=== PATIENT | female | born 1980 | race Caucasian/White ===

== ENCOUNTER 2017-08-14 12:36 | Emergency (ER) | payer MEDICAID ==
[~2017-08-14] VITALS: Ht 170.2 cm; Wt 71.0 kg
[2017-08-14] MEDS ORDERED: thiamine 100mg/ml 2ml inj. IV ONE (12:50)
[2017-08-14] MEDS ORDERED: ondansetron/PF 4mg/2ml inj IV ONE (12:50)
[2017-08-14] MEDS ORDERED: normal saline 1000ML IV soln IVB ONE (12:50)
[2017-08-14] MEDS ORDERED: folic acid 1mg/0.2ml inj IV ONE (12:50)
[2017-08-14] MEDS ORDERED: proCHLORperazine 10 MG/2 ml inj IV ONE (12:55)
[2017-08-14 13:15] LABS: BASOPHILS % (AUTO) 0.3 % (0-1); EOSINOPHILS # (AUTO) 0.1 X10'3 (0-0.9); EOSINOPHILS % (AUTO) 1.1 % (0-6); HEMATOCRIT 39.2 % (35.0-45.0); HEMOGLOBIN 13.7 g/dl (12.0-16.0); LYMPHOCYTES # (AUTO) 2.2 X10'3 (1.1-4.8); LYMPHOCYTES % (AUTO) 31.4 % (21-51); MEAN CORPUSCULAR HEMOGLOBIN 32.8 PG (27.0-31.0); MEAN CORPUSCULAR HGB CONC 34.9 % (33.0-36.5); MEAN PLATELET VOLUME 8.9 FL (7.4-10.4); MONOCYTES # (AUTO) 0.4 X10'3 (0-0.9); MONOCYTES % (AUTO) 5.6 % (2-12); NEUTROPHILS # (AUTO) 4.3 X10'3 (1.8-7.7); NEUTROPHILS % (AUTO) 61.6 % (42-75); PLATELET COUNT 245 X10'3 (140-440); RED BLOOD COUNT 4.16 X10'6 (4.20-5.60); RED CELL DISTRIBUTION WIDTH 14.1 % (11.5-14.5); WHITE BLOOD COUNT 6.9 X10'3 (4.5-11.0)
[2017-08-14 13:27] LABS: URINE HCG NEGATIVE (NEG)
[2017-08-14 13:30] LABS: CLARITY,URINE CLEAR (Clear); COLOR,URINE STRAW (Yellow); GLUCOSE, URINE NEGATIVE (Neg); KETONES,URINE NEGATIVE (Neg); LEUKOCYTE ESTERASE ,URINE NEGATIVE (Neg); NITRITES, URINE NEGATIVE (Neg); OCCULT BLOOD,URINE NEGATIVE (Neg); PROTEIN,URINE NEGATIVE (Neg); UA COLLECTION TYPE CLN CATCH MIDSTREAM; UROBILINOGEN,URINE 0.2 E.U/dL (0.2-1.0)
[2017-08-14 13:34] LABS: ALANINE AMINOTRANSFERASE 85 U/L (12-78); ALBUMIN/GLOBULIN RATIO 1.3 (1.1-1.5); ALKALINE PHOSPHATASE 78 IU/L (46-116); ANION GAP 10 (8-16); ASPARTATE AMINO TRANSFERASE 88 U/L (10-37); BILIRUBIN,TOTAL 0.4 MG/DL (0.1-1.0); BLOOD UREA NITROGEN 7 MG/DL (7-18); CALCIUM 8.4 MG/DL (8.5-10.1); CHLORIDE 104 MMOL/L (99-107); ETHANOL 0.278 GM/DL (0.0-0.010); GLUCOSE 150 MG/DL (70-104); LIPASE 277 U/L (73-393); POTASSIUM 3.8 MMOL/L (3.5-5.1); SODIUM 140 MMOL/L (135-145); TOTAL CARBON DIOXIDE 25.8 MMOL/L (24-32); eGFR > 90 ML/MIN
[2017-08-14] MEDS ORDERED: PHE12.5T PO (13:53)
[2017-08-14 14:45] VITALS: BP 118/78
== END 2017-08-14 15:49 | disposition home or self-care (01) ==
LOC: ER 12:36
DX: F10.129 Alcohol abuse with intoxication, unspecified (principal); R11.2 Nausea with vomiting, unspecified; R10.30 Lower abdominal pain, unspecified; Z88.5 Allergy status to narcotic agent; Y90.9 Presence of alcohol in blood, level not specified
CPT/HCPCS: 36415; 80053; 80320; 81003; 81025; 83690; 85025; 96361; 96374; 96375; 99284; J0780; J3411; J3490; J7030

== ENCOUNTER 2018-07-29 12:27 | Emergency (ER) | payer MEDICAID ==
[~2018-07-29] VITALS: Ht 167.6 cm; Wt 64.1 kg
[~2018-07-29 12:27] MED LIST: PHE12.5T PO
[2018-07-29 13:25] LABS: BASOPHILS % (AUTO) 0.5 % (0-1); EOSINOPHILS % (AUTO) 0.3 % (0-6); HEMATOCRIT 44.3 % (35.0-45.0); HEMOGLOBIN 14.4 g/dl (12.0-16.0); LYMPHOCYTES # (AUTO) 1.6 X10'3 (1.1-4.8); MEAN CORPUSCULAR HEMOGLOBIN 31.3 PG (27.0-31.0); MEAN CORPUSCULAR HGB CONC 32.7 % (33.0-36.5); MEAN CORPUSCULAR VOLUME 95.7 FL (78-98); MEAN PLATELET VOLUME 9.1 FL (7.4-10.4); MONOCYTES # (AUTO) 0.3 X10'3 (0-0.9); MONOCYTES % (AUTO) 7.2 % (2-12); NEUTROPHILS # (AUTO) 2.4 X10'3 (1.8-7.7); PLATELET COUNT 197 X10'3 (140-440); RED BLOOD COUNT 4.62 X10'6 (4.20-5.60); WHITE BLOOD COUNT 4.3 X10'3 (4.5-11.0)
[2018-07-29 13:41] LABS: ALANINE AMINOTRANSFERASE 43 U/L (12-78); ALBUMIN 4.1 G/DL (3.4-5.0); ALBUMIN/GLOBULIN RATIO 1.2 (1.1-1.5); ALKALINE PHOSPHATASE 104 IU/L (46-116); ANION GAP 14 (8-16); ASPARTATE AMINO TRANSFERASE 59 U/L (10-37); BILIRUBIN,TOTAL 0.4 MG/DL (0.1-1.0); BLOOD UREA NITROGEN 7 MG/DL (7-18); CALCIUM 7.9 MG/DL (8.5-10.1); CHLORIDE 99 MMOL/L (99-107); GLUCOSE 124 MG/DL (70-104); POTASSIUM 3.7 MMOL/L (3.5-5.1); SODIUM 138 MMOL/L (135-145); TOTAL CARBON DIOXIDE 25.2 MMOL/L (24-32); TOTAL PROTEIN 7.5 G/DL (6.4-8.2); eGFR > 90 ML/MIN
[2018-07-29 13:55] LABS: CLARITY,URINE CLEAR (Clear); COLOR,URINE STRAW (Yellow); GLUCOSE, URINE NEGATIVE (Neg); KETONES,URINE NEGATIVE (Neg); LEUKOCYTE ESTERASE ,URINE NEGATIVE (Neg); NITRITES, URINE NEGATIVE (Neg); OCCULT BLOOD,URINE TRACE-INTACT (Neg); PH,URINE 7.5 (4.8-8.0); PROTEIN,URINE NEGATIVE (Neg); UROBILINOGEN,URINE 0.2 E.U/dL (0.2-1.0)
[2018-07-29 14:01] LABS: UA COLLECTION TYPE CLN CATCH MIDSTREAM
[2018-07-29 14:02] LABS: BACTERIA,URINE NONE SEEN /HPF (Neg); MUCUS STRANDS NONE SEEN /LPF (Neg); RBC,URINE 0-2 /HPF (0-2); SQUAMOUS EPITHELIAL CELL,UR NONE SEEN /LPF (FEW); WBC,URINE NONE SEEN /HPF (0-4)
[2018-07-29 14:08] LABS: URINE AMPHETAMINE SCREEN NEGATIVE (Neg); URINE BARBITUATE SCREEN NEGATIVE (Neg); URINE BENZODIAZEPINES SCREEN NEGATIVE (Neg); URINE CANNABINOID SCREEN NEGATIVE (Neg); URINE COCAINE SCREEN NEGATIVE (Neg); URINE METHADONE SCREEN NEGATIVE (Neg); URINE OPIATE SCREEN NEGATIVE (Neg); URINE PHENCYCLIDINE SCREEN NEGATIVE (Neg)
--- NOTE | 2018-07-29 14:20 | NUR ---
Telepsyche ordered for patient. Telepsyche order called in to [facility]. Patient in queue. Camera set in front of patient
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
--- NOTE | 2018-07-29 14:55 | NUR ---
All patient belongs inventoried at this time
--- NOTE | 2018-07-29 15:20 | NUR ---
Friend who brought in patient at bedside, comforting patient as she cries.
--- NOTE | 2018-07-29 16:00 | NUR ---
Call received from Telepsyche doctor. Report given regarding patient's status.
--- NOTE | 2018-07-29 16:10 | NUR ---
Call received back from Telepsyche doctor who stated, "It is not ethical per our standards for me to evaluate a patient with such a high blood alcohol level." Asked us to call back when the patient's blood alcohol was 0.[address] Gallagher notified. Agreed with Telepsyche doctor. No meds ordered. States "We'll wait for [facility] to evaluate patient in about 16 hours."
--- NOTE | 2018-07-29 21:30 | NUR ---
Resting in bed, awake, denies needs, will monitor.
--- NOTE | 2018-07-29 22:00 | NUR ---
Restin in bed, appearing to sleep at times. Up to BRP per self. Will continue to monitor.
--- NOTE | 2018-07-29 23:00 | NUR ---
Resting in bed, eyes closed, appearing to sleep. Will continue to monitor.
--- NOTE | 2018-07-30 | NUR ---
Resting in bed, up to BRP ad suad, denies needs, will continue to monitor.
--- NOTE | 2018-07-30 01:06 | NUR ---
Sitting in bed, concerned regarding her "fast heart rate", assessed, HR 88, V/S/S. Educated patient regarding ETOH and her other concoerns, patient states understanding. Encouraged to attempt to get rest. Patient agrees
[2018-07-30] MEDS ORDERED: albuterol MDI INH (01:16)
--- NOTE | 2018-07-30 02:07 | NUR ---
Resting in bed, appearing to sleep. No new concerns noted, will continue to monitor.
--- NOTE | 2018-07-30 03:09 | NUR ---
Resting in bed, appearing to sleep. No new concerns noted, will continue to monitor.
--- NOTE | 2018-07-30 04:23 | NUR ---
Patient up to BRP, N/V noted. ERP informed and requested orders.
--- NOTE | 2018-07-30 05:28 | NUR ---
Up to BRP, emesis noted, ERP is aware. Changed diet to Clear Liquids d/t this. No other complaints. Will monitor.
[2018-07-30] MEDS ORDERED: albuterol 2.5 MG/3 ML nebule NEB PRN (05:30)
--- NOTE | 2018-07-30 05:50 | NUR ---
Patient hyperventilating, becoming anxious, difficult to redirect, reassurance given.
--- NOTE | 2018-07-30 06:30 | NUR ---
Awake upon change of shift observation. Crying and walking the floors accompanied by staff member Bobby. Went to the bathroom and vomited 200 cc of clear liquid. Returned to bed. Continues to tremble.
[2018-07-30] MEDS ORDERED: LORazepam 1 MG tablet PO ONE (06:45)
[2018-07-30] MEDS ORDERED: ondansetron 4mg rapidly disintigrating tab PO ONE (06:45)
[2018-07-30] MEDS ORDERED: LORazepam 0.5 MG tablet PO ONE (06:55)
--- NOTE | 2018-07-30 07:30 | NUR ---
Dr. Starr here to evaluate patient. Ordered Ativan 1 mg. and Zofran 4 mg PO now. Medications administered as ordered.
--- NOTE | 2018-07-30 08:10 | NUR ---
Awakened from sleep to inform patient about her breakfast. Patient served a clear liquid diet due to recent nausea. Aida from [facility] at bedside afterwards to evaluate patient for possible 5150 status.
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
--- NOTE | 2018-07-30 08:40 | NUR ---
Patient discharged to home with all her personal belongings. Escorted to the lobby via ambulatory by Security to wait for her friend Jayda to pick her up. Patient was given information about outpatient alcohol treatment. Patient threw information into the garbage.
[2018-07-30 09:04] VITALS: BP 126/76
== END 2018-07-30 08:40 | disposition home or self-care (01) ==
LOC: ER 12:29
DX: F32.9 Major depressive disorder, single episode, unspecified (principal); F10.129 Alcohol abuse with intoxication, unspecified; J45.909 Unspecified asthma, uncomplicated; Z88.5 Allergy status to narcotic agent; Y90.9 Presence of alcohol in blood, level not specified
CPT/HCPCS: 36415; 80053; 80305; 80320; 81001; 84443; 85025; 99284

== ENCOUNTER 2021-10-25 07:49 | Emergency (ER) | payer SELFPAY ==
[~2021-10-25] VITALS: Ht 167.6 cm; Wt 78.6 kg
[~2021-10-25 07:49] MED LIST changes: -PHE12.5T PO; +albuterol MDI INH
[2021-10-25 09:05] LABS: BASOPHILS % (AUTO) 0.4 % (0-1); EOSINOPHILS % (AUTO) 0.2 % (0-6); HEMOGLOBIN 12.8 g/dl (12.0-16.0); LYMPHOCYTES # (AUTO) 0.9 X10'3 (1.1-4.8); LYMPHOCYTES % (AUTO) 12.1 % (21-51); MEAN CORPUSCULAR HEMOGLOBIN 31.7 PG (27.0-31.0); MEAN CORPUSCULAR HGB CONC 33.8 g/dL (33.0-36.5); MEAN CORPUSCULAR VOLUME 93.8 FL (78-98); MEAN PLATELET VOLUME 8.7 FL (7.4-10.4); MONOCYTES # (AUTO) 0.4 X10'3 (0-0.9); MONOCYTES % (AUTO) 5.1 % (2-12); NEUTROPHILS # (AUTO) 6.4 X10'3 (1.8-7.7); NEUTROPHILS % (AUTO) 82.2 % (42-75); PLATELET COUNT 207 X10'3 (140-440); RED BLOOD COUNT 4.05 X10'6 (4.20-5.60); RED CELL DISTRIBUTION WIDTH 13.9 % (11.5-14.5); WHITE BLOOD COUNT 7.8 X10'3 (4.5-11.0)
[2021-10-25 09:10] LABS: ALANINE AMINOTRANSFERASE 45 U/L (12-78); ALBUMIN 3.4 G/DL (3.4-5.0); ALBUMIN/GLOBULIN RATIO 0.9 (1.1-1.5); ALKALINE PHOSPHATASE 90 IU/L (46-116); ANION GAP 13 (8-16); ASPARTATE AMINO TRANSFERASE 63 U/L (10-37); BILIRUBIN,TOTAL 0.5 MG/DL (0.1-1.0); BLOOD UREA NITROGEN 5 MG/DL (7-18); BUN/CREATININE RATIO 7.1 (6.6-38.0); CALCIUM 8.2 MG/DL (8.5-10.1); CHLORIDE 97 MMOL/L (99-107); GLUCOSE 116 MG/DL (70-104); LIPASE 230 U/L (73-393); POTASSIUM 3.3 MMOL/L (3.5-5.1); SODIUM 136 MMOL/L (135-145); TOTAL CARBON DIOXIDE 25.6 MMOL/L (24-32); eGFR > 90 ML/MIN
[2021-10-25] MEDS ORDERED: thiamine 100mg/ml 2ml inj. IV STA (09:58)
[2021-10-25] MEDS ORDERED: folic acid 1mg/0.2ml inj IV STA (09:58)
[2021-10-25] MEDS ORDERED: multivitamins, therapeutics tablet PO STA (09:58)
[2021-10-25] MEDS ORDERED: normal saline 1000ML IV soln IVB ONE (10:00)
[2021-10-25] MEDS ORDERED: metoclopramide 5 mg/ml inj IV ONE ×2 (10:00→13:30)
[2021-10-25] MEDS ORDERED: LORazepam 2 mg/ml vial IV ONE (10:00)
[2021-10-25] MEDS ORDERED: ondansetron/PF 4mg/2ml inj IV ONE ×2 (10:20→12:40)
--- NOTE | 2021-10-25 10:54 | NUR ---
awaiting urine sample.
[2021-10-25 10:56] LABS: ETHANOL 0.116 GM/DL (0.0-0.010); MAGNESIUM 1.6 MG/DL (1.5-2.4)
[2021-10-25] MEDS ORDERED: normal saline 1000ml 1,000 ML IV ONE (11:20)
[2021-10-25 12:14] LABS: CLARITY,URINE CLEAR (Clear); GLUCOSE, URINE 100 mg/dl (Neg); KETONES,URINE >=80 mg/dl (Neg); LEUKOCYTE ESTERASE ,URINE NEGATIVE (Neg); NITRITES, URINE NEGATIVE (Neg); OCCULT BLOOD,URINE NEGATIVE (Neg); PH,URINE 6.5 (4.8-8.0); PROTEIN,URINE >=300 mg/dl (Neg); URINE HCG POSITIVE (NEG)
[2021-10-25] MEDS ORDERED: magnesium 2GM in 50ml NS 50 ML IV ONE (12:15)
[2021-10-25] MEDS ORDERED: potassium CL 10mEq/100ml bag 100 ML IV ONE (12:15)
[2021-10-25] MEDS ORDERED: phenobarbital sod 130mg/ml inj. IV ONE (12:15)
[2021-10-25 12:22] LABS: COLOR,URINE DARK YELLOW (Yellow)
[2021-10-25 12:23] LABS: UA COLLECTION TYPE CLN CATCH MIDSTREAM
[2021-10-25 12:31] LABS: BACTERIA,URINE 2+ /HPF (Neg); RBC,URINE 0-2 /HPF (0-2); SQUAMOUS EPITHELIAL CELL,UR MANY /LPF (FEW); WBC,URINE 0-4 /HPF (0-4)
[2021-10-25 12:32] LABS: MUCUS STRANDS FEW /LPF (Neg)
[2021-10-25] MEDS ORDERED: diphenhydrAMINE 50 mg/ml inj IV ONE (13:30)
[2021-10-25 14:49] VITALS: BP 106/59
--- NOTE | 2021-10-25 15:23 | NUR ---
SPOKE WITH PT ABOUT HER CALLING [facility]. PT STATES ITS OK TO GIVE HIM INFO REGARDING HER BEING HERE.
--- NOTE | 2021-10-25 15:33 | NUR ---
patient on a bsc, call light within reach. Given 8 oz water for po challenge.
[2021-10-25] MEDS ORDERED: CHLO25CA10 PO (15:58)
[2021-10-25] MEDS ORDERED: ONDA4TAB12 PO (15:59)
[2021-10-27] MEDS ORDERED: ONDA4TAB12 PO (10:58)
[2021-10-27] MEDS ORDERED: CHLO25CA10 PO (10:58)
== END 2021-10-25 16:09 | disposition home or self-care (01) ==
LOC: ER 07:49
DX: O26.893 Other specified pregnancy related conditions, third trimester (principal); Z3A.28 28 weeks gestation of pregnancy; F10.239 Alcohol dependence with withdrawal, unspecified; G89.29 Other chronic pain; M54.9 Dorsalgia, unspecified; F32.9 Major depressive disorder, single episode, unspecified; J45.909 Unspecified asthma, uncomplicated; Z88.5 Allergy status to narcotic agent
CPT/HCPCS: 36415; 80053; 80320; 81001; 81025; 83690; 83735; 84100; 85025; 96361; 96365; 96366; 96368; 96375; 99285; J1200; J2405; J2560; J2765; J3411; J3475; J3480; J3490; J7030